=== PATIENT | male | born 2000 ===

== ENCOUNTER → 2023-12-01 | Emergency (ER) | payer SELFPAY ==
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
== END ==
LOC: ER 10:09
DX: Z04.3 Encounter for examination and observation following other accident (principal); V47.5XXA Car driver injured in collision with fixed or stationary object in traffic accident, initial encounter